=== PATIENT | male | born 1975 | race Caucasian/White ===

== ENCOUNTER 2017-12-11 11:12 | Emergency (ER) | END 2017-12-11 13:35 | disposition home or self-care (01) ==

== ENCOUNTER 2018-03-03 10:06 | Inpatient (IN) | END 2018-03-06 17:15 | disposition home or self-care (01) | DRG 377 ==

== ENCOUNTER 2018-07-08 07:15 | Emergency (ER) | payer MEDICARE, MEDICAID ==
[~2018-07-08] VITALS: Wt 89.6 kg
[~2018-07-08 07:15] MED LIST: ALLO300T2 PO; ALPR0.5T6 PO; ASPI81TA52 PO; ATOR40TA68 PO; CALC667C PO; CARI350T29 PO; CARV6.2579 PO; CHOL10009 PO; DEXL60CA2 PO; FOLI-49 PO; IVAB5TAB PO; LINA290C PO; NEPH PO; NITR0.4T39 SL; SUCR500T PO
[2018-07-08] MEDS ORDERED: BELLADONNA/PHENOBARBITAL TAB PO STA (07:37)
[2018-07-08] MEDS ORDERED: KETOROLAC 15 MG INJ IV STA (07:37)
[2018-07-08] MEDS ORDERED: FAMOTIDINE 20 MG TAB PO STA (07:37)
[2018-07-08] MEDS ORDERED: ONDANSETRON 4 MG INJ IV STA (07:37)
[2018-07-08] MEDS ORDERED: LIDOCAINE/MYLANTA 40 ML BTL PO STA (07:37)
--- NOTE | 2018-07-08 08:15 | ERD ---
ER Documentation Chief Complaint Chief Complaint abd pain, n/v, onset 2 days, DIALYSIS PT HPI 43-year-old man complains of multiple episodes of vomiting beginning this morning and 2 days of periumbilical abdominal pain. He has end-stage kidney disease and was hemodialyzed yesterday. Patient also complains of sore throat after vomiting. He has not eaten anything since last night, denies fevers or chills, no diarrhea, no blood per rectum or melena, no complaints of chest pain or shortness of breath. He was diagnosed with diverticulitis a few months ago and required hospitalization. Patient denies prior abdominal surgery. ROS All systems reviewed and are negative except as per history of present illness. Medications Home Meds Reported Medications Cholecalciferol (Vitamin D3) 1,000 Unit Capsule, 1000 UNIT PO DAILY, CAP 03/03/18 Carisoprodol* (Carisoprodol*) 350 Mg Tablet, 350 MG PO DAILY PRN for MUSCLE SPASMS, TAB 03/03/18 Sucroferric Oxyhydroxide (Velphoro) 500 Mg Tab.chew, 500 MG PO TID, TAB.CHEW 03/03/18 Ivabradine HCl (Corlanor) 5 Mg Tablet, 5 MG PO BID, #60 TAB 03/03/18 Nitroglycerin* (Nitrostat*) 0.4 Mg Tab.subl, 0.4 MG SL Q5MIN PRN for CHEST PAIN, BOTTLE 03/03/18 Multivit/Ca Carb/B Cmplx/Fa* (Anahy-Piotr*) 1 Tab Tab, 1 TAB PO DAILY, TAB 03/03/18 Linaclotide (LINZESS) 290 Mcg Capsule, 290 MCG PO DAILY, #30 CAP 03/03/18 Folic Acid* (Folic Acid*) 1 Mg Tablet, 1 MG PO DAILY, TAB 03/03/18 Dexlansoprazole (Dexilant) 60 Mg Praneeth., 60 MG PO DAILY, #30 CAP 03/03/18 Carvedilol* (Carvedilol*) 6.25 Mg Tablet, 6.25 MG PO BID, #60 TAB 03/03/18 Calcium Acetate* (Calcium Acetate*) 667 Mg Capsule, 1334 MG PO WITH MEALS, #60 CAP 03/03/18 Atorvastatin* (Atorvastatin*) 40 Mg Tablet, 40 MG PO QHS, #30 TAB 03/03/18 Aspirin (Low Dose Aspirin) 81 Mg Tablet.dr, 81 MG PO DAILY, #30 TAB 03/03/18 Alprazolam* (Alprazolam*) 0.5 Mg Tablet, 0.5 MG PO DAILY PRN for ANXIETY, TAB 03/03/18 Allopurinol* (Allopurinol*) 300 Mg Tablet, 300 MG PO BID, TAB 03/03/18 Allergies Allergies: Coded Allergies: iodine (Verified Allergy, Unknown, sob, 07/08/18) PMhx/Soc History of Surgery: Yes (Right Knee cyst removal) Anesthesia Reaction: No Hx Neurological Disorder: No Hx Respiratory Disorders: No Hx Cardiac Disorders: Yes (AICD, AV Fistula) Hx Psychiatric Problems: No Hx Miscellaneous Medical Probl: No Hx Alcohol Use: Yes Hx Substance Use: No Hx Tobacco Use: Yes Smoking Status: Never smoker FmHx Family History: No diabetes Physical Exam Vitals Vital Signs Date Temp Pulse Resp B/P (MAP) Pulse Ox O2 O2 Flow FiO2 Time Delivery Rate 07/08/18 97.6 89 17 135/76 100 07:19 (95) Physical Exam GENERAL: Well-developed, well-nourished, nauseous, afebrile HEENT: Moist mucous membranes, pink conjunctiva, no pharyngeal erythema, no exudates. No submandibular induration. NEURO: Alert and oriented 3, cranial nerves II through XII intact bilaterally, pupils equal round reactive to light, no focal deficits or facial asymmetry, sensation intact distally Strength 5/5 in upper and lower extremities bilaterally CARDIAC: Regular rate and rhythm, no murmurs rubs or gallops LUNGS: Clear bilaterally no wheezing crackles or stridor ABDOMEN: Mild diffuse tenderness throughout, no guarding, no rigidity, no McBurney's point tenderness SKIN: Warm and dry to touch, no abrasions, contusions, or hematomas, no lacerations, no ecchymosis, no target lesions, and without ulcers EXTREMITIES: No clubbing cyanosis or edema, calves are bilaterally symmetrical, no Homans sign, no popliteal cord sign. Distal pulses equal and bilateral PSYCH: Normal affect without agitation or irritability Result Diagram: 07/08/18 0800 07/08/18 0800 Results 24 hrs Laboratory Tests Test 07/08/18 08:00 White Blood Count 7.2 10^3/ul Red Blood Count 3.37 10^6/ul Hemoglobin 11.2 g/dl Hematocrit 33.8 % Mean Corpuscular Volume 100.3 fl Mean Corpuscular Hemoglobin 33.2 pg Mean Corpuscular Hemoglobin Concent 33.1 g/dl Red Cell Distribution Width 11.7 % Platelet Count 200 10^3/UL Mean Platelet Volume 9.7 fl Immature Granulocytes % 0.300 % Neutrophils % 64.1 % Lymphocytes % 20.4 % Monocytes % 5.5 % Eosinophils % 8.9 % Basophils % 0.8 % Nucleated Red Blood Cells % 0.0 /100WBC Immature Granulocytes # 0.020 10^3/ul Neutrophils # 4.6 10^3/ul Lymphocytes # 1.5 10^3/ul Monocytes # 0.4 10^3/ul Eosinophils # 0.6 10^3/ul Basophils # 0.1 10^3/ul Nucleated Red Blood Cells # 0.0 10^3/ul Prothrombin Time 12.1 Sec Prothrombin Time Ratio 0.9 INR International Normalized Ratio 0.89 Activated Partial Thromboplast Time 34.8 Sec Sodium Level 140 mmol/L Potassium Level 5.4 mmol/L Chloride Level 94 mmol/L Carbon Dioxide Level 32 mmol/L Anion Gap 14 Blood Urea Nitrogen 46 mg/dl Creatinine 11.96 mg/dl Est Glomerular Filtrat Rate mL/min 5 mL/min Glucose Level 92 mg/dl Calcium Level 9.5 mg/dl Total Bilirubin 0.2 mg/dl Direct Bilirubin 0.00 mg/dl Indirect Bilirubin 0.2 mg/dl Aspartate Amino Transf (AST/SGOT) 23 IU/L Alanine Aminotransferase (ALT/SGPT) 16 IU/L Alkaline Phosphatase 75 IU/L Total Protein 8.0 g/dl Albumin 4.4 g/dl Globulin 3.60 g/dl Albumin/Globulin Ratio 1.22 Lipase 119 U/L Current Medications Medications Dose Sig/Tyree Start Time Status Last (Trade) Ordered Route PRN Stop Time Admin Dose Reason Admin Ondansetron 4 mg ONCE STAT 07/08/18 DC 07/08/18 HCl (Zofran IV 07:37 08:18 Inj) 07/08/18 07:46 Famotidine 20 mg ONCE STAT 07/08/18 DC 07/08/18 (Pepcid) PO 07:37 08:18 07/08/18 07:46 40 ml ONCE STAT 07/08/18 DC 07/08/18 Miscellaneous PO 07:37 08:19 Medication 07/08/18 07:46 (Gi Cocktail (2)) Belladonna/ 2 tab ONCE STAT 07/08/18 DC 07/08/18 Phenobarbital PO 07:37 08:19 () 07/08/18 07:46 Ketorolac 15 mg ONCE STAT 07/08/18 DC 07/08/18 Tromethamine IV 07:37 08:21 (Toradol) 07/08/18 07:46 Procedures/MDM IV line was established patient was placed on cardiac nurse rhythm strip revealed a sinus rhythm at about 80 bpm with upright P and T waves. Patient was afebrile I administered a GI cocktail, Zofran 4 mg IV, Toradol 15 mg IV CBC and electrolytes were unremarkable, liver function tests were normal, coagulation profile was normal. CT scan of the abdomen and pelvis was performed,IMPRESSION: 1. Colonic diverticulosis without evidence of diverticulitis. 2. Unremarkable appendix. 3. Atrophic kidneys without calcified urinary calculi or obstructive uropathy. Bilateral renal cysts again noted. 4. Tiny umbilical and bilateral inguinal fat-containing hernias without herniated bowel or strangulation. CBC was unremarkable, electrolytes revealed mild hyperkalemia 5.4, liver f unction tests were normal. Patient's vital signs remain normal, he remains afebrile, abdominal pain has improved. His potassium was mildly elevated although he does have end-stage kidney disease and is due for hemodialysis tomorrow and I do not think this level is critical for Mr. Hood EKG performed, read by me revealed a normal sinus rhythm at 60 bpm, normal axis, narrow QRS complex, no concerning ST elevations or depressions noted. No signs of hyperkalemia on EKG. Administered Kayexalate 15 g p.o. for mild hyperkalemia. Differential diagnoses considered, included but not limited to acute coronary syndrome, pulmonary embolism, aortic dissection, abdominal aortic aneurysm, sepsis, stroke, meningitis, encephalitis, pneumonia, appendicitis, cholecystitis, bowel obstruction, pyelonephritis, nephrolithiasis, cystitis, as well as metabolic, hematologic, and electrolyte abnormalities. As well as abscess, cellulitis, fractures, and dislocations. Patient feels much better at this time, and vital signs are normal, symptoms have improved. I did give strict instructions to return to the ED if symptoms continue or worsen, patient will otherwise follow-up with primary care physician. Patient understood instructions and agreed to plan. Disclaimer: Inadvertent spelling and grammatical errors are likely due to EHR/dictation software use and do not reflect on the overall quality of patient care. Also, please note that the electronic time recorded on this note does not necessarily reflect the actual time of the patient encounter. Departure Diagnosis: Primary Impression: Abdominal pain Abdominal location: generalized Qualified Codes: R10.84 - Generalized abdominal pain Additional Impressions: Hyperkalemia Sore throat End stage kidney disease Vomiting Vomiting type: unspecified Vomiting Intractability: non-intractable Nausea presence: with nausea Qualified Codes: R11.2 - Nausea with vomiting, unspecified Condition: Good MY MCPHERSON MD Jul 08, 2018 08:15
[2018-07-08] MEDS ORDERED: NA POLYST SULFON 15 GM/60 ML BTL PO ONE (09:00)
[2018-07-08] MEDS ORDERED: NAPR-985 PO (09:18)
[2018-07-08] MEDS ORDERED: ONDA4TAB8 PO (09:18)
[2018-07-08 10:06] VITALS: BP 111/84; PULSE 84; RESP 20
== END 2018-07-08 10:08 | disposition home or self-care (01) ==
LOC: E/R 07:15
DX: R10.84 Generalized abdominal pain (principal); R40.2142 Coma scale, eyes open, spontaneous, at arrival to emergency department; R40.2362 Coma scale, best motor response, obeys commands, at arrival to emergency department; R40.2252 Coma scale, best verbal response, oriented, at arrival to emergency department; E87.5 Hyperkalemia; J02.9 Acute pharyngitis, unspecified; N18.6 End stage renal disease; Z99.2 Dependence on renal dialysis; Z87.891 Personal history of nicotine dependence; Z79.82 Long term (current) use of aspirin
CPT/HCPCS: 36415; 74176; 80053; 83690; 85025; 85610; 85730; 93005; 96374; 96375; 99285; J1885; J2405

== ENCOUNTER 2018-09-10 07:38 | Emergency (ER) | payer MEDICARE, MEDICAID ==
[~2018-09-10] VITALS: Wt 89.6 kg
[~2018-09-10 07:38] MED LIST changes: +NAPR-985 PO; +ONDA4TAB8 PO
--- NOTE | 2018-09-10 08:45 | ERD ---
ER Documentation Chief Complaint Chief Complaint JUST FINISHED DIALYISIS, FEELS LIGHT HEADED, AND SOB HPI 43-year-old male presents to the emergency department complaining of palpitations. Patient states that he finished his dialysis as per his usual today. 20 minutes after stopping dialysis, he had a sense of his heart rate going fast. He denied any chest pain. Triage note indicates that he has shortness of breath, he is denying this to me. He does state that he felt occasionally lightheaded but did not feel like he was going to pass out. His symptoms then resolved and he feels asymptomatic at this time. He is unclear about exactly how long the symptoms lasted for, but they certainly have been less than approximately 20 minutes as that was the end of his dialysis. ROS All systems reviewed and are negative except as per history of present illness. Medications Home Meds Active Scripts Ondansetron Hcl* (Zofran*) 4 Mg Tablet, 4 MG PO Q8H PRN for NAUSEA AND/OR V OMITING, #30 TAB Prov:MY MCPHERSON MD 07/08/18 Naproxen* (Naprosyn*) 500 Mg Tablet, 500 MG PO BID PRN for PAIN AND/OR INFLAMMATION, #30 TAB Prov:MY MCPHERSON MD 07/08/18 Reported Medications Cholecalciferol (Vitamin D3) 1,000 Unit Capsule, 1000 UNIT PO DAILY, CAP 03/03/18 Carisoprodol* (Carisoprodol*) 350 Mg Tablet, 350 MG PO DAILY PRN for MUSCLE SPASMS, TAB 03/03/18 Sucroferric Oxyhydroxide (Velphoro) 500 Mg Tab.chew, 500 MG PO TID, TAB.CHEW 03/03/18 Ivabradine HCl (Corlanor) 5 Mg Tablet, 5 MG PO BID, #60 TAB 03/03/18 Nitroglycerin* (Nitrostat*) 0.4 Mg Tab.subl, 0.4 MG SL Q5MIN PRN for CHEST PAIN, BOTTLE 03/03/18 Multivit/Ca Carb/B Cmplx/Fa* (Anahy-Piotr*) 1 Tab Tab, 1 TAB PO DAILY, TAB 03/03/18 Linaclotide (LINZESS) 290 Mcg Capsule, 290 MCG PO DAILY, #30 CAP 03/03/18 Folic Acid* (Folic Acid*) 1 Mg Tablet, 1 MG PO DAILY, TAB 03/03/18 Dexlansoprazole (Dexilant) 60 Mg Cap..yaakov, 60 MG PO DAILY, #30 CAP 03/03/18 Carvedilol* (Carvedilol*) 6.25 Mg Tablet, 6.25 MG PO BID, #60 TAB 03/03/18 Calcium Acetate* (Calcium Acetate*) 667 Mg Capsule, 1334 MG PO WITH MEALS, #60 CAP 03/03/18 Atorvastatin* (Atorvastatin*) 40 Mg Tablet, 40 MG PO QHS, #30 TAB 03/03/18 Aspirin (Low Dose Aspirin) 81 Mg Tablet., 81 MG PO DAILY, #30 TAB 03/03/18 Alprazolam* (Alprazolam*) 0.5 Mg Tablet, 0.5 MG PO DAILY PRN for ANXIETY, TAB 03/03/18 Allopurinol* (Allopurinol*) 300 Mg Tablet, 300 MG PO BID, TAB 03/03/18 Allergies Allergies: Coded Allergies: iodine (Verified Allergy, Unknown, sob, 07/08/18) PMhx/Soc History of Surgery: Yes (Right Knee cyst removal) Anesthesia Reaction: No Hx Neurological Disorder: No Hx Respiratory Disorders: No Hx Cardiac Disorders: Yes (AICD, AV Fistula) Hx Psychiatric Problems: No Hx Miscellaneous Medical Probl: No Hx Alcohol Use: Yes Hx Substance Use: No Hx Tobacco Use: Yes Smoking Status: Current some day smoker Physical Exam Vitals Vital Signs Date Temp Pulse Resp B/P (MAP) Pulse Ox O2 O2 Flow FiO2 Time Delivery Rate 09/10/18 89 14 105/74 100 Nasal 08:25 (84) Cannula 09/10/18 Nasal 2 07:55 Cannula 09/10/18 97.8 117 18 107/64 99 07:39 (78) Physical Exam GENERAL: The patient is well developed and appropriate for usual state of health in no apparent distress HEENT: Pupils equal, round, and reactive to light. EOMI. There is no scleral icterus. NECK: C-spine is soft and supple, there is no meningismus. There is no cervical lymphadenopathy. LUNGS: Clear to auscultation bilaterally. There are no rales, wheezes or rhonchi. HEART: Regular rate and rhythm, no murmurs, clicks, rubs or gallops. ABDOMEN: Soft, non-tender, non-distended. There are bowel sounds in all four quadrants. No rebound or guarding. EXTREMITIES: There is no peripheral cyanosis or edema. No focal swelling or erythema. NEURO: The patient moves all four extremities with 5/5 strength. Cranial nerves II - XII are intact. Normal gait. Alert and oriented SKIN: There is no apparent rash or petechiae. HEME/LYMPHATIC: There is no evidence of excessive bruising or lymphedema. PSYCHIATRIC: The patient does not appear anxious or depressed. Result Diagram: 09/10/18 0457 09/10/18 0457 Results 24 hrs Laboratory Tests Test 09/10/18 04:57 White Blood Count 8.7 10^3/ul Red Blood Count 3.79 10^6/ul Hemoglobin 12.0 g/dl Hematocrit 36.3 % Mean Corpuscular Volume 95.8 fl Mean Corpuscular Hemoglobin 31.7 pg Mean Corpuscular Hemoglobin Concent 33.1 g/dl Red Cell Distribution Width 12.4 % Platelet Count 209 10^3/UL Mean Platelet Volume 9.3 fl Immature Granulocytes % 0.500 % Neutrophils % 66.5 % Lymphocytes % 20.8 % Monocytes % 6.8 % Eosinophils % 4.6 % Basophils % 0.8 % Nucleated Red Blood Cells % 0.0 /100WBC Immature Granulocytes # 0.040 10^3/ul Neutrophils # 5.8 10^3/ul Lymphocytes # 1.8 10^3/ul Monocytes # 0.6 10^3/ul Eosinophils # 0.4 10^3/ul Basophils # 0.1 10^3/ul Nucleated Red Blood Cells # 0.0 10^3/ul Sodium Level 140 mmol/L Potassium Level 4.1 mmol/L Chloride Level 93 mmol/L Carbon Dioxide Level 30 mmol/L Anion Gap 17 Blood Urea Nitrogen 33 mg/dl Creatinine 8.20 mg/dl Est Glomerular Filtrat Rate mL/min 7 mL/min Glucose Level 89 mg/dl Calcium Level 9.5 mg/dl Troponin I < 0.012 ng/ml Procedures/MDM Patient was taken to a room, seen and evaluated. Comfort measures were initiated. Diagnostic tests were ordered and reviewed. 3 LEAD RHYTHM STRIP: Normal sinus rhythm without ectopy EK lead EKG reviewed by myself: Normal Sinus Rhythm Normal [place] and intervals No ST elevation, depression, or T wave inversion Impression: Normal EKG RADIOLOGY: Reviewed with the radiologist REEVALUATION: 0840: Diagnostic tests were appreciated. Patient remained without arrhythmia in the emergency department and appeared clinically well. MEDICAL DECISION MAKIN-year-old male presents to the emergency department with palpitations. Patient has an existing history of similar type symptoms. He states that one month ago he had an angiogram which was normal. Patient has no findings on his EKG of cardiac ischemia and has been without arrhythmia in the emergency department. Further diagnostic workup to check on electrolytes, anemia and other concerns of all been normal. Patient appears to be clinically well at this time and appropriate for outpatient supportive care. Departure Diagnosis: Primary Impression: Heart palpitations Condition: Good Patient Instructions: Palpitations SIMBA CHANCE Sep 10, 2018 08:45
[2018-09-10 09:00] VITALS: BP 99/81; PULSE 92; RESP 16
== END 2018-09-10 09:20 | disposition home or self-care (01) ==
LOC: E/R 07:38
DX: R00.2 Palpitations (principal); R40.2142 Coma scale, eyes open, spontaneous, at arrival to emergency department; R40.2252 Coma scale, best verbal response, oriented, at arrival to emergency department; R40.2362 Coma scale, best motor response, obeys commands, at arrival to emergency department; F17.210 Nicotine dependence, cigarettes, uncomplicated; Z79.82 Long term (current) use of aspirin; Z99.2 Dependence on renal dialysis
CPT/HCPCS: 36415; 71045; 80048; 84484; 85025; 93005

== ENCOUNTER 2018-09-14 18:32 | Emergency (ER) | payer MEDICARE, MEDICAID ==
[~2018-09-14] VITALS: Ht 177.8 cm; Wt 94.3 kg
[2018-09-14 18:34] VITALS: Ht 177.8 cm; Wt 94.3 kg
[2018-09-14 19:03] VITALS: BP 117/73; PULSE 85; RESP 20
--- NOTE | 2018-09-14 19:30 | ERD ---
ER Documentation Chief Complaint Chief Complaint dialysis access started to bleed 15 mins ago HPI 43-year-old male with history of CKD on hemodialysis presenting with bleeding from his AV fistula site on his right lower arm. He has had a fistula for about 5 years. Recently about a few weeks ago, he had a clot in the fistula and a stent was placed by vascular surgeon in [place]. His last dialysis was 2 days ago. Today while he was getting up from a chair, he held onto the handles of the chair and pushed himself up. At that moment his fistula started to bleed with pulsatile bleeding. He is not on any blood thinners other than what receiving heparin at dialysis. He denies any other associated symptoms. This is never happened to him before. ROS All systems reviewed and are negative except as per history of present illness. Medications Home Meds Active Scripts Ondansetron Hcl* (Zofran*) 4 Mg Tablet, 4 MG PO Q8H PRN for NAUSEA AND/OR VOMITING, #30 TAB Prov:MY MCPHERSON MD 07/08/18 Naproxen* (Naprosyn*) 500 Mg Tablet, 500 MG PO BID PRN for PAIN AND/OR INFLAMMATION, #30 TAB Prov:MY MCPHERSON MD 07/08/18 Reported Medications Cholecalciferol (Vitamin D3) 1,000 Unit Capsule, 1000 UNIT PO DAILY, CAP 03/03/18 Carisoprodol* (Carisoprodol*) 350 Mg Tablet, 350 MG PO DAILY PRN for MUSCLE SPASMS, TAB 03/03/18 Sucroferric Oxyhydroxide (Velphoro) 500 Mg Tab.chew, 500 MG PO TID, TAB.CHEW 03/03/18 Ivabradine HCl (Corlanor) 5 Mg Tablet, 5 MG PO BID, #60 TAB 03/03/18 Nitroglycerin* (Nitrostat*) 0.4 Mg Tab.subl, 0.4 MG SL Q5MIN PRN for CHEST PAIN, BOTTLE 03/03/18 Multivit/Ca Carb/B Cmplx/Fa* (Anahy-Piotr*) 1 Tab Tab, 1 TAB PO DAILY, TAB 03/03/18 Linaclotide (LINZESS) 290 Mcg Capsule, 290 MCG PO DAILY, #30 CAP 03/03/18 Folic Acid* (Folic Acid*) 1 Mg Tablet, 1 MG PO DAILY, TAB 03/03/18 Dexlansoprazole (Dexilant) 60 Mg Cap., 60 MG PO DAILY, #30 CAP 03/03/18 Carvedilol* (Carvedilol*) 6.25 Mg Tablet, 6.25 MG PO BID, #60 TAB 03/03/18 Calcium Acetate* (Calcium Acetate*) 667 Mg Capsule, 1334 MG PO WITH MEALS, #60 CAP 03/03/18 Atorvastatin* (Atorvastatin*) 40 Mg Tablet, 40 MG PO QHS, #30 TAB 03/03/18 Aspirin (Low Dose Aspirin) 81 Mg Tablet., 81 MG PO DAILY, #30 TAB 03/03/18 Alprazolam* (Alprazolam*) 0.5 Mg Tablet, 0.5 MG PO DAILY PRN for ANXIETY, TAB 03/03/18 Allopurinol* (Allopurinol*) 300 Mg Tablet, 300 MG PO BID, TAB 03/03/18 Allergies Allergies: Coded Allergies: iodine (Verified Allergy, Unknown, sob, 07/08/18) PMhx/Soc History of Surgery: Yes (Right Knee cyst removal) Anesthesia Reaction: No Hx Neurological Disorder: No Hx Respiratory Disorders: No Hx Cardiac Disorders: Yes (AICD, AV Fistula) Hx Psychiatric Problems: No Hx Miscellaneous Medical Probl: Yes (CKD) Hx Alcohol Use: No Hx Substance Use: No Hx Tobacco Use: No Smoking Status: Never smoker FmHx Family History: No diabetes Physical Exam Vitals Vital Signs Date Temp Pulse Resp B/P (MAP) Pulse Ox O2 O2 Flow FiO2 Time Delivery Rate 09/14/18 98.7 85 20 117/73 97 Room Air 19:03 (88) 09/14/18 98.7 91 18 134/77 98 18:34 (96) Physical Exam Const: No acute distress Head: Atraumatic Neck: Full range of motion. No meningismus. Resp: Clear to auscultation bilaterally Cardio: Regular rate and rhythm, no murmurs Abd: Soft, non tender, non distended. Normal bowel sounds Skin: No petechiae or rashes Back: No midline or flank tenderness Ext: No cyanosis, or edema. Right lower arm with AV fistula, with gauze in place, saturated with blood. 2+ radial pulse, strong. No swelling of the upper extremity. No discoloration or cyanosis. No active bleeding once dressing was removed. Area of recent bleeding noted at puncture site Neur: Awake and alert, sensations intact distally. Psych: Normal Mood and Affect Procedures/MDM Patient is presenting with bleeding from his dialysis access site, now resolved. I placed a few layers of skin glue on the area of the bleeding. Pressure dressing was applied. Patient is neurovascularly intact. Follow-up with his vascular surgeon was recommended for tomorrow. Advised not to remove the dressing until he gets dialysis. Departure Diagnosis: Primary Impression: Problem with dialysis access Encounter type: initial encounter Qualified Codes: T82.898A - Other specified complication of vascular prosthetic devices, implants and grafts, initial encounter Condition: Stable Patient Instructions: Dialysis Shunt (Fistula) Bleeding Referrals: MORRIS BURLESON MD (PCP) Additional Instructions: Talk to your vascular surgeon tomorrow about what happened today. I do not remove the dressing until you go to dialysis. If there is recurrent bleeding that you cannot control at home, return to the ER. NOEMI VALLADARES MD Sep 14, 2018 19:30
== END 2018-09-14 19:36 | disposition home or self-care (01) ==
LOC: E/R 18:32
DX: T82.898A Other specified complication of vascular prosthetic devices, implants and grafts, initial encounter (principal); N18.9 Chronic kidney disease, unspecified; Y73.2 Prosthetic and other implants, materials and accessory gastroenterology and urology devices associated with adverse incidents; Z79.82 Long term (current) use of aspirin
CPT/HCPCS: 99282

== ENCOUNTER 2018-12-10 08:33 | Observation (INO) | payer MEDICARE, MEDICAID ==
[~2018-12-10] VITALS: Ht 177.8 cm; Wt 91.7 kg
[2018-12-10] MEDS ORDERED: ASPIRIN 81 MG TAB PO STA (08:47)
[2018-12-10] MEDS: NITROGLYCERIN 2% 1 GM OINT PKT TD STA ×2 (08:54→10:47)
[2018-12-10] MEDS ORDERED: ONDANSETRON 4 MG INJ IV STA (08:55)
[2018-12-10] MEDS ORDERED: morphine 4 MG/ML VIAL IV STA ×2 (08:55→13:27)
[2018-12-10] MEDS ORDERED: NITROGLYCERIN (SL) 0.4 MG TAB SL PRN ×2 (09:00→20:30)
[2018-12-10] MEDS ORDERED: FOLI-49 PO (10:02)
[2018-12-10] MEDS ORDERED: HYDR4TAB51 PO (10:04)
[2018-12-10] MEDS ORDERED: ASPI-817 PO (10:05)
[2018-12-10] MEDS ORDERED: LINA290C PO (10:05)
[2018-12-10] MEDS ORDERED: CARI350T29 PO (10:05)
[2018-12-10] MEDS ORDERED: CARV6.2579 PO (10:06)
[2018-12-10] MEDS ORDERED: ATOR40TA68 PO (10:06)
[2018-12-10] MEDS ORDERED: CHOL100062 PO (10:07)
[2018-12-10] MEDS ORDERED: CALC667C PO (10:08)
[2018-12-10] MEDS ORDERED: DEXL60CA2 PO (10:09)
[2018-12-10] MEDS ORDERED: IVAB5TAB PO (10:09)
[2018-12-10] MEDS ORDERED: SUCR500T PO (10:10)
[2018-12-10] MEDS ORDERED: NEPH PO (10:11)
[2018-12-10] MEDS ORDERED: ACETAMINOPHEN 325 MG TAB PO PRN (10:30)
[2018-12-10] MEDS ORDERED: ONDANSETRON 4 MG INJ IV PRN (10:30)
--- NOTE | 2018-12-10 13:13 | ERD ---
ER Documentation Chief Complaint Chief Complaint SUDDEN UNPROVOKED CHEST PAIN RADIATING TO THE BACK 1 HOUR AFTER DIALYSIS HPI Patient is a 43-year-old male with a history of dialysis and coronary disease who presents with chest pain. He said that it started 1 hour after he got dialysis today. He had full dialysis today. He has left-sided pain which radiates to his back. He was brought in by ambulance and was given aspirin and nitroglycerin by paramedics. Upon review of old medical records this is the patient's ninth visit to the ER since 2006. The patient's primary doctor was Dr. Tate. ROS All systems reviewed and are negative except as per history of present illness. Medications Home Meds Reported Medications Multivit/Ca Carb/B Cmplx/Fa* (Anahy-Piotr*) 1 Tab Tab, 1 TAB PO DAILY, TAB 12/10/18 Sucroferric Oxyhydroxide (Velphoro) 500 Mg Tab.chew, 500 MG PO TID, TAB.CHEW 12/10/18 Dexlansoprazole (Dexilant) 60 Mg Cap..yaakov, 60 MG PO DAILY, #30 CAP 12/10/18 Ivabradine HCl (Corlanor) 5 Mg Tablet, 5 MG PO BID, #60 TAB 12/10/18 Calcium Acetate* (Calcium Acetate*) 667 Mg Capsule, 1334 MG PO WITH MEALS, #60 CAP 12/10/18 Cholecalciferol* (Vitamin D3*) 1,000 Unit Tablet, 1000 UNIT PO DAILY, TAB 12/10/18 Atorvastatin* (Atorvastatin*) 40 Mg Tablet, 40 MG PO QHS, #30 TAB 12/10/18 Carvedilol* (Carvedilol*) 6.25 Mg Tablet, 6.25 MG PO BID, #60 TAB 12/10/18 Aspirin* (Aspirin* EC) 81 Mg Tablet., 81 MG PO DAILY, TAB 12/10/18 Linaclotide (LINZESS) 290 Mcg Capsule, 290 MCG PO DAILY, #30 CAP 12/10/18 Carisoprodol* (Carisoprodol*) 350 Mg Tablet, 350 MG PO DAILY PRN for MUSCLE SPASMS, TAB 12/10/18 Hydromorphone Hcl* (Dilaudid*) 4 Mg Tablet, 4 MG PO Q8H PRN for PAIN, TAB 12/10/18 Folic Acid* (Folic Acid*) 1 Mg Tablet, 1 MG PO DAILY, TAB 12/10/18 Discontinued Reported Medications Cholecalciferol (Vitamin D3) 1,000 Unit Capsule, 1000 UNIT PO DAILY, CAP 03/03/18 Carisoprodol* (Carisoprodol*) 350 Mg Tablet, 350 MG PO DAILY PRN for MUSCLE SPASMS, TAB 03/03/18 Sucroferric Oxyhydroxide (Velphoro) 500 Mg Tab.chew, 500 MG PO TID, TAB.CHEW 03/03/18 Ivabradine HCl (Corlanor) 5 Mg Tablet, 5 MG PO BID, #60 TAB 03/03/18 Nitroglycerin* (Nitrostat*) 0.4 Mg Tab.subl, 0.4 MG SL Q5MIN PRN for CHEST PAIN, BOTTLE 03/03/18 Multivit/Ca Carb/B Cmplx/Fa* (Anahy-Piotr*) 1 Tab Tab, 1 TAB PO DAILY, TAB 03/03/18 Linaclotide (LINZESS) 290 Mcg Capsule, 290 MCG PO DAILY, #30 CAP 03/03/18 Folic Acid* (Folic Acid*) 1 Mg Tablet, 1 MG PO DAILY, TAB 03/03/18 Dexlansoprazole (Dexilant) 60 Mg Cap., 60 MG PO DAILY, #30 CAP 03/03/18 Carvedilol* (Carvedilol*) 6.25 Mg Tablet, 6.25 MG PO BID, #60 TAB 03/03/18 Calcium Acetate* (Calcium Acetate*) 667 Mg Capsule, 1334 MG PO WITH MEALS, #60 CAP 03/03/18 Atorvastatin* (Atorvastatin*) 40 Mg Tablet, 40 MG PO QHS, #30 TAB 03/03/18 Aspirin (Low Dose Aspirin) 81 Mg Tablet., 81 MG PO DAILY, #30 TAB 03/03/18 Alprazolam* (Alprazolam*) 0.5 Mg Tablet, 0.5 MG PO DAILY PRN for ANXIETY, TAB 03/03/18 Allopurinol* (Allopurinol*) 300 Mg Tablet, 300 MG PO BID, TAB 03/03/18 Discontinued Scripts Ondansetron Hcl* (Zofran*) 4 Mg Tablet, 4 MG PO Q8H PRN for NAUSEA AND/OR VOMITING, #30 TAB Prov:MY MCPHERSON MD 07/08/18 Naproxen* (Naprosyn*) 500 Mg Tablet, 500 MG PO BID PRN for PAIN AND/OR INFLAMMATION, #30 TAB Prov:MY MCPHERSON MD 07/08/18 Allergies Allergies: Coded Allergies: Iodinated Contrast- Oral and IV Dye (Unverified Allergy, Unknown, 12/10/18) iodine (Verified Allergy, Unknown, sob, 12/10/18) PMhx/Soc History of Surgery: Yes (Right Knee cyst removal) Anesthesia Reaction: No Hx Neurological Disorder: No Hx Respiratory Disorders: No Hx Cardiac Disorders: Yes (AICD, AV Fistula) Hx Psychiatric Problems: No Hx Miscellaneous Medical Probl: Yes (CKD) Hx Alcohol Use: No Hx Substance Use: No Hx Tobacco Use: No Smoking Status: Never smoker FmHx Family History: No coronary disease Physical Exam Vitals Vital Signs Date Temp Pulse Resp B/P (MAP) Pulse Ox O2 O2 Flow FiO2 Time Delivery Rate 12/10/18 98.2 73 16 102/78 100 Nasal 2.0 10:30 (86) Cannula 12/10/18 Nasal 2 09:29 Cannula 12/10/18 98.2 93 18 110/67 97 08:41 (81) Physical Exam Const: No acute distress Head: Atraumatic Eyes: Normal Conjunctiva ENT: Normal External Ears, Nose and Mouth. Neck: Full range of motion. No meningismus. Resp: Clear to auscultation bilaterally Cardio: Regular rate and rhythm, no murmurs Abd: Soft, non tender, non distended. Normal bowel sounds Skin: No petechiae or rashes Back: No midline or flank tenderness Ext: No cyanosis, or edema Neur: Awake and alert Psych: Normal Mood and Affect Result Diagram: 12/10/18 0900 12/10/18 0900 Results 24 hrs Laboratory Tests Test 12/10/18 09:00 White Blood Count 5.7 10^3/ul Red Blood Count 3.59 10^6/ul Hemoglobin 11.6 g/dl Hematocrit 35.1 % Mean Corpuscular Volume 97.8 fl Mean Corpuscular Hemoglobin 32.3 pg Mean Corpuscular Hemoglobin Concent 33.0 g/dl Red Cell Distribution Width 12.5 % Platelet Count 197 10^3/UL Mean Platelet Volume 9.9 fl Immature Granulocytes % 0.200 % Neutrophils % 62.7 % Lymphocytes % 22.4 % Monocytes % 11.1 % Eosinophils % 2.5 % Basophils % 1.1 % Nucleated Red Blood Cells % 0.0 /100WBC Immature Granulocytes # 0.010 10^3/ul Neutrophils # 3.6 10^3/ul Lymphocytes # 1.3 10^3/ul Monocytes # 0.6 10^3/ul Eosinophils # 0.1 10^3/ul Basophils # 0.1 10^3/ul Nucleated Red Blood Cells # 0.0 10^3/ul Sodium Level 139 mmol/L Potassium Level 5.0 mmol/L Chloride Level 96 mmol/L Carbon Dioxide Level 32 mmol/L Anion Gap 11 Blood Urea Nitrogen 47 mg/dl Creatinine 9.49 mg/dl Est Glomerular Filtrat Rate mL/min 6 mL/min Glucose Level 101 mg/dl Calcium Level 8.5 mg/dl Troponin I < 0.012 ng/ml Current Medications Medications Dose Sig/Tyree Start Time Status Last (Trade) Ordered Route PRN Stop Time Admin Dose Reason Admin Aspirin 162 mg ONCE STAT 12/10/18 DC (Aspirin) PO 08:47 12/10/18 08:57 1 inch ONCE STAT 12/10/18 DC Nitroglycerin TD 08:47 12/10/18 08:49 (Nitroglyceri n 2% Oint) 1 tab Q5M UP TO 3 12/10/18 Nitroglycerin DOSES PRN 09:00 SL .CHEST (Nitroglyceri PAIN n (Sl Tab) 0.4 Mg) Morphine 4 mg ONCE STAT 12/10/18 DC 12/10/18 Sulfate IV 08:55 09:02 (morphine) 12/10/18 08:57 Ondansetron 4 mg ONCE STAT 12/10/18 DC 12/10/18 HCl (Zofran IV 08:55 09:02 Inj) 12/10/18 08:57 Ondansetron 4 mg ER BRIDGE 12/10/18 HCl (Zofran PRN IV 10:30 Inj) NAUSEA/VOMITI 12/11/18 10:29 NG 650 mg ER BRIDGE 12/10/18 Acetaminophen PRN PO 10:30 (Tylenol .MILD PAIN 12/11/18 10:29 Tab) 1-3 OR TEMP Procedures/MDM EKG #1 read by me: Rate/Rhythm: Regular rate and rhythm at a rate of 89 Intervals: Normal Impression: No evidence of ischemia or arrhythmia EKG #2 read by me: Rate/Rhythm: Regular rate and rhythm at a rate of 77 Intervals: Normal Impression: No evidence of ischemia or arrhythmia Chest x-ray read by radiology. Patient is a 43-year-old male who presents with acute chest pain. I am concerned for acute coronary syndrome. EKGs were normal. Troponin was negative. She was x-ray was read by radiology. At this point I doubt pneumoni a, pneumothorax, pulmonary embolism, or aortic dissection. I am concerned for possible acute coronary syndrome. The patient will be admitted to the care of Dr. Maher to a telemetry observation bed. Departure Diagnosis: Primary Impression: Chest pain Chest pain type: unspecified Qualified Codes: R07.9 - Chest pain, unspecified Condition: SETH Monsalve MD Dec 10, 2018 13:13
[2018-12-10] MEDS ORDERED: ZOLPIDEM 5 MG TAB PO PRN (17:00)
[2018-12-10] MEDS ORDERED: CARISOPRODOL 350 MG TAB PO PRN (17:00)
[2018-12-10] MEDS ORDERED: PANTOPRAZOLE 40 MG INJ IV ONE (18:00)
[2018-12-10] MEDS ORDERED: DOCUSATE SODIUM 250 MG CAP PO ONE (18:00)
[2018-12-10 18:11] VITALS: BP 111/62; PULSE 68; RESP 20
[2018-12-10 18:26] VITALS: Ht 177.8 cm; Wt 91.7 kg
[2018-12-10] MEDS: CALCIUM ACETATE 667 MG CAP PO SCH (18:44)
[2018-12-10 19:17] VITALS: BP 114/59; PULSE 72; RESP 18
[2018-12-10] MEDS: HYDROCODONE/APAP (5/325) TAB PO PRN (20:22)
[2018-12-10] MEDS: ONDANSETRON 4 MG INJ IV PRN (20:24)
[2018-12-10] MEDS ORDERED: ATORVASTATIN 40 MG TAB PO SCH (21:00)
[2018-12-10] MEDS: IVABRADINE HCL 5 MG TABLET PO SCH (21:32)
--- NOTE | 2018-12-10 22:40 | CONS ---
DATE OF ADMISSION: 12/10/2018 DATE OF CONSULTATION: 12/10/2018 TYPE OF CONSULTATION: Cardiology. REASON FOR CONSULTATION: Chest pain, assess for acute coronary syndrome. HISTORY OF PRESENT ILLNESS: Mr. Hood is a 43-year-old male with history of coronary artery disease, e nd-stage renal disease on hemodialysis, hypertension, dyslipidemia, likely cardiomyopathy with decrea sed left ventricular ejection fraction and he states he has an ICD, who underwent hemodialysis this m orning and after dialysis back at home had the onset of a left-sided substernal chest pain described as a stabbing to pressure-like sensation occurring at rest. Upon arrival, temperature was 98.2, bloo d pressure 110/67, pulse 73, respiratory rate 18 and sat 97%. The patient's labs revealed a white co unt of 5.7, hemoglobin of 11.6 and platelet count of 197. Sodium 139, potassium 5.0, creatinine 0.49 and BUN 47. Troponin was negative. The patient's electrocardiogram revealed a sinus rhythm, rate o f 71 with normal axis, normal intervals, with borderline inferior Q in III, nonspecific ST-T abnormal ities. The patient was subsequently treated with morphine, aspirin, nitro paste 1 inch and now await s admit to the floor. PAST MEDICAL HISTORY: As above in HPI. MEDICATIONS CURRENTLY IN THE HOSPITAL: 1. Aspirin 81 mg daily. 2. Lipitor 40 mg at bedtime. 3. Carvedilol 6.25 mg p.o. b.i.d. 4. Ivabradine 5 mg p.o. b.i.d. 5. Soma. 6. Colace. 7. Ambien. 8. P.r.n. Tylenol. ALLERGIES: CONTRAST. MEDICATIONS PRIOR TO ADMIT: 1. Lipitor 40 mg at bedtime. 2. Carvedilol 6.25 mg b.i.d. 3. Ivabradine 5 mg b.i.d. 4. Aspirin 81 mg daily. 5. Dilaudid p.r.n. 6. PhosLo 667 mg daily. 7. Dexilant. 8. Vitamin D3. 9. Folic acid. 10. Anahy-Piotr. SOCIAL HISTORY: No current tobacco, social ETOH, no illicit drug use. FAMILY HISTORY: No sudden cardiac or early CAD. REVIEW OF SYSTEMS: As above in HPI. CONSTITUTIONAL: No fevers or chills. PULMONARY: No current shortness of breath. CARDIOVASCULAR: Intermittent chest pain. GASTROINTESTINAL: No vomiting. GENITOURINARY: No hematuria. MUSCULOSKELETAL: Degenerative joint disease. PSYCHIATRIC: The patient denies depression. NEUROLOGIC: No documented history of CVA. ENDOCRINE: No documented history of diabetes mellitus. PHYSICAL EXAMINATION: VITAL SIGNS: Temperature 97.8, blood pressure 129/83, pulse 71, respiratory rate 17, satting 100% on 2 liters. GENERAL: The patient is alert, awake, in no acute distress. NECK: JVP approximately 8 to 9 cm of water. CHEST: Fair air movement throughout. HEART: Regular rate and rhythm. Normal S1, S2, I/ systolic murmur. ABDOMEN: Positive bowel sounds, soft. EXTREMITIES: No edema, 1+ pulses bilateral posterior tibial. LABORATORY STUDIES: As above in the HPI. Since admit, the patient's labs ____ negative, negative t roponins. IMAGING STUDIES: As above in the HPI. No further imaging studies for my review at this time. ECG: As above in the HPI. No further electrograms for my review at this time. IMPRESSION: 1. Chest pain, assess for acute coronary syndrome. 2. History of cardiomyopathy with decreased left ventricular contraction. 3. History of automatic implantable cardioverter-defibrillator placed by Dr. Robin. 4. Hypertension, reasonable control. 5. Dyslipidemia. 6. History of coronary artery disease. 7. End-stage renal disease on hemodialysis. RECOMMENDATIONS: 1. At this time, would admit the patient to telemetry monitoring to follow rhythm and rate closely. 2. Complete the patient's rule out for myocardial infarction to assure the patient's chest pain was not due to an acute coronary syndrome such as an acute myocardial infarction, thus send a final tropo cindy. 3. Continue the patient's aspirin for prophylaxis against cardiovascular events and the patient's Li pitor and adjust it according to a fasting lipid panel to be checked. 4. Would discontinue the patient's carvedilol and ivabradine watching his heart rate and blood press ure closely. I do not think the patient has any need for afterload reduction with MARLEN inhibitor and, therefore, we will check a 2D echo to further assess the patient's ejection fraction, wall motion an d major valve abnormalities and we will consider a possible stress test in this patient if he rules o ut for myocardial infarction. Thank you for allowing me to take part in the care of this patient. I will continue to follow very c losely with you with further recommendations will be made as the patient progresses through his [facility] clinical course. Dictated By: KEVIN LAWSON/NTS Conf#: [id number] DID#: [id number] CC: MORRIS BURLESON MD;*EndCC*
[2018-12-10 23:42] VITALS: BP 105/57; PULSE 79; RESP 18
[2018-12-11] MEDS: ONDANSETRON 4 MG INJ IV PRN ×3 (00:03→09:15)
[2018-12-11] MEDS: HYDROCODONE/APAP (5/325) TAB PO PRN ×3 (00:04→14:14)
[2018-12-11 04:06] VITALS: BP 105/59; PULSE 72; RESP 18
[2018-12-11] MEDS: CALCIUM ACETATE 667 MG CAP PO SCH ×3 (07:55→17:55)
[2018-12-11] MEDS: IVABRADINE HCL 5 MG TABLET PO SCH (08:13)
[2018-12-11] MEDS ORDERED: CHOLECALCIFEROL 1,000 UNIT TAB PO SCH (09:00)
[2018-12-11] MEDS ORDERED: MULTIVIT/CA CARB/B CMPLX/FA TAB PO SCH (09:00)
[2018-12-11] MEDS ORDERED: ASPIRIN (EC) 81 MG TAB PO SCH (09:00)
[2018-12-11] MEDS ORDERED: REGADENOSON 0.4 MG/5 ML SYG ONE (11:23)
--- NOTE | 2018-12-11 11:45 | HP ---
DATE OF ADMISSION: 12/10/2018 HISTORY OF PRESENT ILLNESS:. This is a patient who is known to me from outpatient visits. A 43-year -old male, who came into the Emergency Room with chest pain when he was having dialysis. An hour thr ough the dialysis started having chest pain, so he was sent to the Emergency Room. Patient who has h istory of end-stage renal disease, he has history of coronary artery disease, hypertension, dyslipide maribell, cardiomyopathy with decreased ejection fraction. He also has an ICD. He started having chest d iscomfort an hour through dialysis. That is why he was sent to the Emergency Room. In the Emergency Room, his blood pressure was 110/60, pulse was 72, respiratory rate 18, and he was afebrile. PAST MEDICAL HISTORY: He has a past medical history, as I mentioned above, he has also has, in addit ion to coronary artery disease, hypertension, end-stage renal disease. He has history of chronic renetta k pain, history of diverticulitis and chronic pain disorder. HOME MEDICATIONS: He is on: 1. Aspirin 81 daily. 2. Lipitor 40 daily. 3. Coreg 6.25 twice a day. 4. 5 mg twice a day. 5. Soma 350 3 times a day. 6. Colace 250 daily. 7. Linzess 250 daily. 8. Ambien. 9. Tylenol p.r.n. SOCIAL HISTORY: Does not smoke, social alcohol use, no drug abuse. FAMILY HISTORY: No family history of coronary artery disease and just history of hypertension. REVIEW OF SYSTEMS: The patient is complaining of chest discomfort. He did not have any fever or chi lls. He did not have any cough or sputum production recently. He did not have any shortness of matilde th recently. He denies any abdominal pain, nausea, vomiting. He denies of any hesitancy, urgency or pain during urination. He denies of any one-sided weakness more than the other, or any numbness or tingling. PHYSICAL EXAMINATION: VITAL SIGNS: Temperature is 97.8, blood pressure is 130/60, heart rate is 70, respiratory rate 18, a nd he is afebrile, saturating 100% on 2 liters. HEENT: Atraumatic, normocephalic. Pupils are equal and reactive to light. Extraocular muscles are intact. Nares are clear, no obstruction, no deviation of the septum. Oral cavity, normal oral hygie ne. Ear canals are clear, no signs of inflammation or infection. Tympanic membranes are intact. NECK: Supple. No JVD, no surgical scars, no lymph nodes palpable over the neck. CHEST: AP contour is within normal limits. BREASTS: Breasts and nipples are normal, no nipple retraction. HEART: S1, S2, regular rate and rhythm with cardiomegaly, with a systolic murmur over the apex and h e has the defibrillator on the chest also. LUNGS: Clear to auscultation, no wheezes or crackles and no abnormalities over the lungs. ABDOMEN: Soft, positive bowel sounds, no hepatosplenomegaly, no masses palpable over the abdomen and no rebound tenderness. EXTREMITIES: No edema, clubbing or cyanosis of the extremities. He has trophic changes over the ext remities, otherwise negative. Pulses are palpable. NEUROLOGIC: Cranial nerves II through XII are completely intact. ADMITTING DIAGNOSES: 1. Chest pain, rule out ischemia. He has a history of cardiomyopathy with decreased ejection fracti on and he has a defibrillator. He has a history of hypertension, dyslipidemia, coronary artery disea se, end-stage renal disease, diverticulitis and chronic pain disorder. The patient will be in observ ation status. Will rule out ischemia. Will get cardiac enzymes. Will have cardiology see the patie nt and will have 2D echo to assess his ejection fraction and will follow his labs today. His labs today are chemistry: Sodium is 139, potassium is 5.0, BUN 47, creatinine 9.49. CBC: White blood cells are 5.7, hemoglobin 11.6, hematocrit 35.1, otherwise negative and cardiac enzymes. His troponins are negative, less than 0.012. Chest x-ray: there is no evidence of cardiopulmonary disea se and as I mentioned earlier, the dual-chamber pacemaker, The patient will be under observation. will rule out ischemia and will follow. Dictated By: MORRIS SUNG/MAURA Conf#: [id number] DID#: [id number]
--- NOTE | 2018-12-11 11:53 | PN ---
DATE: 12/11/2018 This is a 43-year-old male who was admitted for chest pain to rule out ischemia. Patient has past me dical history of end-stage renal disease on dialysis, hypertension, coronary artery disease, peripher al vascular disease, chronic pain and diverticulosis. Patient today is going for a Lexiscan to rule out ischemia. VITAL SIGNS: Blood pressure is 105/59, heart rate 74, respiratory rate 18, afebrile. No more chest pain today. He is alert and oriented x3 in no distress. REVIEW OF SYSTEMS: Denies of any chest pain, denies upper abdominal pain. Denies of any hesitancy, urgency. Denies any numbness or tingling. PHYSICAL EXAMINATION: GENERAL: Alert, oriented x3, in no acute distress. HEENT: Atraumatic, normocephalic. CHEST: AP contour is within normal limits. Breasts and nipples are normal, no nipple retraction. HEART: S1, S2, regular rate and rhythm with cardiomegaly. LUNGS: Clear to auscultation, no wheezes or crackles and no abnormalities over the lungs. ABDOMEN: Soft, positive bowel sounds, no hepatosplenomegaly, no masses palpable over the abdomen. N o rebound tenderness. LABORATORY DATA: Today CBC: White blood cells 5.5, hemoglobin 11.6, hematocrit 35.2, and platelet c ount is 191. Chemistry: Sodium is 142, potassium 5.3, BUN 65, creatinine 12.86. Elevated BMP. Car diac enzymes negative since yesterday. ADMITTING DIAGNOSES: Chest pain, rule out ischemia. Patient has Lexiscan today. We will also have dialysis today and if everything within normal limits, possible discharge tomorrow. Dictated By: MORRIS SUNG/MAURA Conf#: [id number] DID#: [id number]
--- NOTE | 2018-12-11 11:59 | CONS ---
Assessment/Plan Assessment/Plan Hospital Course (Demo Recall) IMPRESSION: 1. Chest pain, assess for acute coronary syndrome. 2. History of cardiomyopathy with decreased left ventricular contraction. 3. History of automatic implantable cardioverter-defibrillator placed by Dr. Robin. 4. Hypertension, reasonable control. 5. Dyslipidemia. 6. History of coronary artery disease. 7. End-stage renal disease on hemodialysis. Recc: -Tele -Continue asa -Continue coreg as patient will comply -will start low dose hydralazine afterload reduction in lieu of ACEI at this time given borderline elevated K -HD for volume removal -will f/u echo to reassess EF -lexsican stress test today to assess for ischemia lending to chest pain and reported decreased EF Consultation Date/Type/Reason Admit Date/Time Dec 10, 2018 at 10:05 Initial Consult Date 12/10/18 Type of Consult Cardiology Reason for Consultation chest pain Requesting Provider: MORRIS BURLESON MD Date/Time of Note DATE: 12/11/18 TIME: 11:51 Exam/Review of Systems Vital Signs Vitals Vital Signs Date Temp Pulse Resp B/P (MAP) Pulse Ox O2 O2 Flow FiO2 Time Delivery Rate 12/11/18 Nasal 2.0 07:17 Cannula 12/11/18 97.4 72 18 105/59 95 04:06 (74) Intake and Output 12/10/18 12/10/18 12/11/18 1515:00 23:00 07:00 IntakeIntake Total 360 ml OutputOutput Total 150 ml BalanceBalance 210 ml Exam Exam Review of Systems: CONSTITUTIONAL: No fevers, chills. PULMONARY: No sob CARDIOVASCULAR: No current chest pain GASTROINTESTINAL: No nausea/vomiting. GENITOURINARY: No hematuria/dysuria. MUSCULOSKELETAL: No myagias/arthalgias. PSYCHIATRIC: The patient denies depression. NEUROLOGIC: No weakness Constitutional: alert Psych: no complaints Head: normocephalic ENMT: mucosa pink and moist Neck: supple, jvd (9 cm water) Respiratory: clear to auscultation Cardiovascular: regular rate and rhythm Gastrointestinal: soft, non-tender Musculoskeletal: muscle tone (normal) Extremities: edema (none) Neurological: other (No focal deficits) Labs Result Diagram: 12/11/1851712/11/18517 Results 24hrs Laboratory Tests Test 12/10/18 15:49 12/10/18 21:51 12/11/18 05:18 Creatine Kinase 133 105 Creatine Kinase Index 0.2 0.2 Creatinine Kinase MB (Mass) 0.24 < 0.22 Troponin I < 0.012 0.012 White Blood Count 5.5 Red Blood Count 3.56 L Hemoglobin 11.6 L Hematocrit 35.2 L Mean Corpuscular Volume 98.9 Mean Corpuscular Hemoglobin 32.6 Mean Corpuscular Hemoglobin Concent 33.0 Red Cell Distribution Width 12.2 Platelet Count 191 Mean Platelet Volume 10.1 Immature Granulocytes % 0.200 Neutrophils % 55.5 Lymphocytes % 28.9 Monocytes % 9.4 Eosinophils % 5.1 Basophils % 0.9 Nucleated Red Blood Cells % 0.0 Immature Granulocytes # 0.010 Neutrophils # 3.1 Lymphocytes # 1.6 Monocytes # 0.5 Eosinophils # 0.3 Basophils # 0.1 Nucleated Red Blood Cells # 0.0 Sodium Level 142 Potassium Level 5.3 H Chloride Level 97 Carbon Dioxide Level 25 Anion Gap 20 #H Blood Urea Nitrogen 65 H Creatinine 12.86 #H Est Glomerular Filtrat Rate mL/min 4 L Glucose Level 75 Calcium Level 8.7 B-Type Natriuretic Peptide 7310 H Triglycerides Level 134 Cholesterol Level 144 LDL Cholesterol, Calculated 81 HDL Cholesterol 36 Cholesterol/HDL Ratio 4.0 Medications Medications Current Medications Aspirin (Halfprin) 81 mg DAILY PO Last administered on 12/11/18at 08:14; Admin Dose 81 MG; Start 12/11/18 at 09:00 Atorvastatin Calcium (Lipitor) 40 mg QHS PO Last administered on 12/10/18at 20:21; Admin Dose 40 MG; Start 12/10/18 at 21:00 Calcium Acetate (Phoslo) 1,334 mg WITH MEALS PO Last administered on 12/10/18at 18:44; Admin Dose 1,334 MG; Start 12/10/18 at 17:55 Carisoprodol (Soma) 350 mg DAILY PRN PO MUSCLE SPASMS; Start 12/10/18 at 17:00 Carvedilol (Coreg) 6.25 mg BID PO ; Start 12/10/18 at 21:00 Cholecalciferol (Vitamin D) 1,000 unit DAILY PO Last administered on 12/11/18at 08:13; Admin Dose 1,000 UNIT; Start 12/11/18 at 09:00 Ivabradine (Corlanor) 5 mg BID PO Last administered on 12/10/18at 21:32; Admin D ose 5 MG; Start 12/10/18 at 21:00 Multivit/Ca Carb/ B Cmplx/FA/Prenat (Anahy-Piotr) 1 tab DAILY PO Last administered on 12/11/18at 08:14; Admin Dose 1 TAB; Start 12/11/18 at 09:00 Zolpidem Tartrate (Ambien) 5 mg HS PRN PO INSOMNIA; Start 12/10/18 at 17:00 Acetaminophen/ Hydrocodone Bitart ([place] (5/325)) 1 tab Q4H PRN PO MODERATE PAIN LEVEL 4-6 Last administered on 12/11/18at 04:23; Admin Dose 1 TAB; Start 12/10/18 at 20:30 Ondansetron HCl (Zofran Inj) 4 mg Q4H PRN IV NAUSEA AND/OR VOMITING Last administered on 12/11/18at 04:23; Admin Dose 4 MG; Start 12/10/18 at 20:30 Nitroglycerin (Nitroglycerin (Sl Tab) 0.4 Mg) 1 tab Q5M PRN SL ANGINA; Start 12/10/18 at 20:30 KEVIN DEL CASTILLO Dec 11, 2018 11:59
--- NOTE | 2018-12-11 12:03 | CONS ---
Assessment/Plan Assessment/Plan Assessment/Plan (Daily) 1. acute chest pain 2. ESRD on HD 3. Accelerated HTN 4. H/O HL Plan: pt refused to have HD today, missed HD yesterday, will plan for HD tomorrow pt regular schedule for HD is JES[facility] dougherty today Cardiology following Thanks for consultaiton, I will continue to follow up Consultation Date/Type/Reason Admit Date/Time Dec 10, 2018 at 10:05 Date of Consultation: Dec 11, 2018 Type of Consult NEPHROLOGY Reason for Consultation ESRD on HD Requesting Provider: MORRIS BURLESON MD Date/Time of Note DATE: 12/11/18 TIME: 12:03 Hx of Present Illness 43-year-old male, who came into the Emergency Room with chest pain when he was having dialysis. An hour through the dialysis started having chest pain, so he was sent to the Emergency Room. Patient who has history of end-stage renal disease, he has history of coronary artery disease, hypertension, dyslipidemia, cardiomyopathy with decreased ejection fraction. He also has an ICD. He started having chest discomfort an hour through dialysis. That is why he was sent to the Emergency Room. In the Emergency Room, his blood pressure was 110/60, pulse was 72, respiratory rate 18, and he was afebrile. Renal has been consulted for HD need Cardiovascular: chest pain Past Medical History Medical History: diabetes, high cholesterol, hypertension, other (ESRD on HD ) Home Meds Reported Medications Multivit/Ca Carb/B Cmplx/Fa* (Anahy-Piotr*) 1 Tab Tab, 1 TAB PO DAILY, TAB 12/10/18 Sucroferric Oxyhydroxide (Velphoro) 500 Mg Tab.chew, 500 MG PO TID, TAB.CHEW 12/10/18 Dexlansoprazole (Dexilant) 60 Mg Cap.mp, 60 MG PO DAILY, #30 CAP 12/10/18 Ivabradine HCl (Corlanor) 5 Mg Tablet, 5 MG PO BID, #60 TAB 12/10/18 Calcium Acetate* (Calcium Acetate*) 667 Mg Capsule, 1334 MG PO WITH MEALS, #60 CAP 12/10/18 Cholecalciferol* (Vitamin D3*) 1,000 Unit Tablet, 1000 UNIT PO DAILY, TAB 12/10/18 Atorvastatin* (Atorvastatin*) 40 Mg Tablet, 40 MG PO QHS, #30 TAB 12/10/18 Carvedilol* (Carvedilol*) 6.25 Mg Tablet, 6.25 MG PO BID, #60 TAB 12/10/18 Aspirin* (Aspirin* EC) 81 Mg Tablet., 81 MG PO DAILY, TAB 12/10/18 Linaclotide (LINZESS) 290 Mcg Capsule, 290 MCG PO DAILY, #30 CAP 12/10/18 Carisoprodol* (Carisoprodol*) 350 Mg Tablet, 350 MG PO DAILY PRN for MUSCLE SPASMS, TAB 12/10/18 Folic Acid* (Folic Acid*) 1 Mg Tablet, 1 MG PO DAILY, TAB 12/10/18 Discontinued Reported Medications Hydromorphone Hcl* (Dilaudid*) 4 Mg Tablet, 4 MG PO Q8H PRN for PAIN, TAB 12/10/18 Cholecalciferol (Vitamin D3) 1,000 Unit Capsule, 1000 UNIT PO DAILY, CAP 03/03/18 Carisoprodol* (Carisoprodol*) 350 Mg Tablet, 350 MG PO DAILY PRN for MUSCLE SPASMS, TAB 03/03/18 Sucroferric Oxyhydroxide (Velphoro) 500 Mg Tab.chew, 500 MG PO TID, TAB.CHEW 03/03/18 Ivabradine HCl (Corlanor) 5 Mg Tablet, 5 MG PO BID, #60 TAB 03/03/18 Nitroglycerin* (Nitrostat*) 0.4 Mg Tab.subl, 0.4 MG SL Q5MIN PRN for CHEST PAIN, BOTTLE 03/03/18 Multivit/Ca Carb/B Cmplx/Fa* (Anahy-Piotr*) 1 Tab Tab, 1 TAB PO DAILY, TAB 03/03/18 Linaclotide (LINZESS) 290 Mcg Capsule, 290 MCG PO DAILY, #30 CAP 03/03/18 Folic Acid* (Folic Acid*) 1 Mg Tablet, 1 MG PO DAILY, TAB 03/03/18 Dexlansoprazole (Dexilant) 60 Mg Cap., 60 MG PO DAILY, #30 CAP 03/03/18 Carvedilol* (Carvedilol*) 6.25 Mg Tablet, 6.25 MG PO BID, #60 TAB 03/03/18 Calcium Acetate* (Calcium Acetate*) 667 Mg Capsule, 1334 MG PO WITH MEALS, #60 CAP 03/03/18 Atorvastatin* (Atorvastatin*) 40 Mg Tablet, 40 MG PO QHS, #30 TAB 03/03/18 Aspirin (Low Dose Aspirin) 81 Mg Tablet.dr, 81 MG PO DAILY, #30 TAB 03/03/18 Alprazolam* (Alprazolam*) 0.5 Mg Tablet, 0.5 MG PO DAILY PRN for ANXIETY, TAB 03/03/18 Allopurinol* (Allopurinol*) 300 Mg Tablet, 300 MG PO BID, TAB 03/03/18 Discontinued Scripts Ondansetron Hcl* (Zofran*) 4 Mg Tablet, 4 MG PO Q8H PRN for NAUSEA AND/OR VOMITING, #30 TAB Prov:MY MCPHERSON MD 07/08/18 Naproxen* (Naprosyn*) 500 Mg Tablet, 500 MG PO BID PRN for PAIN AND/OR INFLAMMATION, #30 TAB Prov:MY MCPHERSON MD 07/08/18 Medications Current Medications Aspirin (Halfprin) 81 mg DAILY PO Last administered on 12/11/18at 08:14; Admin Dose 81 MG; Start 12/11/18 at 09:00 Atorvastatin Calcium (Lipitor) 40 mg QHS PO Last administered on 12/10/18at 20:21; Admin Dose 40 MG; Start 12/10/18 at 21:00 Calcium Acetate (Phoslo) 1,334 mg WITH MEALS PO Last administered on 12/10/18at 18:44; Admin Dose 1,334 MG; Start 12/10/18 at 17:55 Carisoprodol (Soma) 350 mg DAILY PRN PO MUSCLE SPASMS; Start 12/10/18 at 17:00 Carvedilol (Coreg) 6.25 mg BID PO ; Start 12/10/18 at 21:00 Cholecalciferol (Vitamin D) 1,000 unit DAILY PO Last administered on 12/11/18at 08:13; Admin Dose 1,000 UNIT; Start 12/11/18 at 09:00 Ivabradine (Corlanor) 5 mg BID PO Last administered on 12/10/18at 21:32; Admin Dose 5 MG; Start 12/10/18 at 21:00 Multivit/Ca Carb/ B Cmplx/FA/Prenat (Anahy-Piotr) 1 tab DAILY PO Last administered on 12/11/18at 08:14; Admin Dose 1 TAB; Start 12/11/18 at 09:00 Zolpidem Tartrate (Ambien) 5 mg HS PRN PO INSOMNIA; Start 12/10/18 at 17:00 Acetaminophen/ Hydrocodone Bitart ([place] (5/325)) 1 tab Q4H PRN PO MODERATE PAIN LEVEL 4-6 Last administered on 12/11/18at 04:23; Admin Dose 1 TAB; Start 12/10/18 at 20:30 Ondansetron HCl (Zofran Inj) 4 mg Q4H PRN IV NAUSEA AND/OR VOMITING Last administered on 12/11/18at 04:23; Admin Dose 4 MG; Start 12/10/18 at 20:30 Nitroglycerin (Nitroglycerin (Sl Tab) 0.4 Mg) 1 tab Q5M PRN SL ANGINA; Start 12/10/18 at 20:30 Allergies: Coded Allergies: Iodinated Contrast- Oral and IV Dye (Unverified Allergy, Unknown, 12/10/18) iodine (Verified Allergy, Unknown, sob, 12/10/18) Social History Smoking Status: Never smoker Exam/Review of Systems Exam Vitals Vital Signs Date Temp Pulse Resp B/P (MAP) Pulse Ox O2 O2 Flow FiO2 Time Delivery Rate 12/11/18 Nasal 2.0 07:17 Cannula 12/11/18 97.4 72 18 105/59 95 04:06 (74) Intake and Output 12/10/18 12/10/18 12/11/18 1515:00 23:00 07:00 IntakeIntake Total 360 ml OutputOutput Total 150 ml BalanceBalance 210 ml Constitutional: alert Psych: no complaints Head: normocephalic Eyes: nl conjunctiva ENMT: nl external ears & nose Neck: supple, non-tender Respiratory: clear to auscultation, normal air movement Cardiovascular: regular rate and rhythm, nl pulses Gastrointestinal: soft, non-tender Musculoskeletal: nl extremities to inspection, nl gait and stance Extremities: normal pulses 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, nl mental status, nl speech, nl strength Skin: nl turgor Lymph: nl lymph nodes Results Result Diagram: 12/11/1851712/11/18517 Results 24hrs Laboratory Tests Test 12/10/18 15:49 12/10/18 21:51 12/11/18 05:18 Creatine Kinase 133 105 Creatine Kinase Index 0.2 0.2 Creatinine Kinase MB (Mass) 0.24 < 0.22 Troponin I < 0.012 0.012 White Blood Count 5.5 Red Blood Count 3.56 L Hemoglobin 11.6 L Hematocrit 35.2 L Mean Corpuscular Volume 98.9 Mean Corpuscular Hemoglobin 32.6 Mean Corpuscular Hemoglobin Concent 33.0 Red Cell Distribution Width 12.2 Platelet Count 191 Mean Platelet Volume 10.1 Immature Granulocytes % 0.200 Neutrophils % 55.5 Lymphocytes % 28.9 Monocytes % 9.4 Eosinophils % 5.1 Basophils % 0.9 Nucleated Red Blood Cells % 0.0 Immature Granulocytes # 0.010 Neutrophils # 3.1 Lymphocytes # 1.6 Monocytes # 0.5 Eosinophils # 0.3 Basophils # 0.1 Nucleated Red Blood Cells # 0.0 Sodium Level 142 Potassium Level 5.3 H Chloride Level 97 Carbon Dioxide Level 25 Anion Gap 20 #H Blood Urea Nitrogen 65 H Creatinine 12.86 #H Est Glomerular Filtrat Rate mL/min 4 L Glucose Level 75 Calcium Level 8.7 B-Type Natriuretic Peptide 7310 H Triglycerides Level 134 Cholesterol Level 144 LDL Cholesterol, Calculated 81 HDL Cholesterol 36 Cholesterol/HDL Ratio 4.0 Medications Medication Current Medications Aspirin (Halfprin) 81 mg DAILY PO Last administered on 12/11/18at 08:14; Admin Dose 81 MG; Start 12/11/18 at 09:00 Atorvastatin Calcium (Lipitor) 40 mg QHS PO Last administered on 12/10/18at 20:21; Admin Dose 40 MG; Start 12/10/18 at 21:00 Calcium Acetate (Phoslo) 1,334 mg WITH MEALS PO Last administered on 12/10/18at 18:44; Admin Dose 1,334 MG; Start 12/10/18 at 17:55 Carisoprodol (Soma) 350 mg DAILY PRN PO MUSCLE SPASMS; Start 12/10/18 at 17:00 Carvedilol (Coreg) 6.25 mg BID PO ; Start 12/10/18 at 21:00 Cholecalciferol (Vitamin D) 1,000 unit DAILY PO Last administered on 12/11/18at 08:13; Admin Dose 1,000 UNIT; Start 12/11/18 at 09:00 Ivabradine (Corlanor) 5 mg BID PO Last administered on 12/10/18at 21:32; Admin Dose 5 MG; Start 12/10/18 at 21:00 Multivit/Ca Carb/ B Cmplx/FA/Prenat (Anahy-Piotr) 1 tab DAILY PO Last administe red on 12/11/18at 08:14; Admin Dose 1 TAB; Start 12/11/18 at 09:00 Zolpidem Tartrate (Ambien) 5 mg HS PRN PO INSOMNIA; Start 12/10/18 at 17:00 Acetaminophen/ Hydrocodone Bitart ([place] (5/325)) 1 tab Q4H PRN PO MODERATE PAIN LEVEL 4-6 Last administered on 12/11/18at 04:23; Admin Dose 1 TAB; Start at 20:30 Ondansetron HCl (Zofran Inj) 4 mg Q4H PRN IV NAUSEA AND/OR VOMITING Last administered on 12/11/18at 04:23; Admin Dose 4 MG; Start 12/10/18 at 20:30 Nitroglycerin (Nitroglycerin (Sl Tab) 0.4 Mg) 1 tab Q5M PRN SL ANGINA; Start 12/10/18 at 20:30 SARIAH WINN MD Dec 11, 2018 12:03
--- NOTE | 2018-12-11 12:29 | CARRPT ---
DATE OF PROCEDURE: 12/11/2018 STRESS TESTING: Chest pain, cardiomyopathy, decreased left ventricular ejection fraction, assess for ischemia. BASELINE VITAL SIGNS AND ELECTROCARDIOGRAM: Pulse 70, blood pressure 122/76. Electrocardiogram with normal sinus rhythm, rate of 70, normal axis, normal intervals, inferior T-wave inversion in lead 3. PROCEDURE: The patient underwent standard Lexiscan infusion protocol over 10 seconds following radio tracer. The patient's test was stopped at completion of protocol. Maximal achieved blood pressure d uring the test 130/64. Maximum achieved heart rate during the test 123. ELECTROCARDIOGRAM FINDINGS: The patient did not develop any new Lexiscan-induced ST or T-wave change s from baseline abnormalities. No documented PVCs. SYMPTOMS: The patient had complaints of nausea and had vomiting during stress test that resolved in recovery. No chest pain. Mild shortness of breath. IMPRESSION: 1. No Lexiscan-induced ST or T-wave changes from baseline abnormalities or diagnostic for ischemia. 2. No complaints of chest pain during stress testing, mild shortness of breath which dissipated duri ng recovery. 3. No documented premature ventricular contractions during stress test. 4. Report of nuclear images to follow in separate dictation. Dictated By: KEVIN LAWSON/MAURA Conf#: [id number] DID#: [id number] CC: MORRIS BURLESON MD;*End*
[2018-12-11] MEDS ORDERED: ALBUMIN HUMAN 25% 100 ML IV PRN (12:30)
[2018-12-11] MEDS ORDERED: HEPARIN 1000 UNITS/ML 10 ML INJ HE SCH (12:30)
[2018-12-11] MEDS ORDERED: SODIUM CHLORIDE 0.9% 1L BAG IV* PRN (12:30)
[2018-12-11] MEDS ORDERED: SODIUM POLYSTYRENE 15 GM KIT (POWDER + SORBITOL) PO ONE (13:30)
[2018-12-11 15:07] VITALS: BP 111/62; PULSE 86; RESP 18
--- NOTE | 2018-12-11 17:06 | RADRPT ---
Vent Rate: 76 bpm RR Interval: 792 msec OH Interval: 186 msec QRS Duration: 102 msec QT Interval: 403 msec QTC Interval: 453 msec P-R-T [place]: 52 - 38 - 37 degrees Sinus rhythm...normal P axis, V-rate 50- 99 Electronically Signed By: Dragan Cartwright
--- NOTE | 2018-12-11 19:16 | RADRPT ---
Echocardiogram Report Patient Name: Grupo JAY ID: [id number] : 1975 (43y 10m)Study Date: 12/11/2018 7:39:06 AM Gender: MAccession #: [id number] Tech: RanjanNeo Mendoza [facility] Location: 522 Ref.Physician: KEVIN MONGE Height(Cm): BSA: Weight(Kg): Quality: AdequateOrder Physician: KEVIN MONGE Account #: Procedures: Echocardiographic Report: Transthoracic echocardiogram with complete 2D, M-Mode, and doppler examination. Indications: Chest Pain. Measurements: 2D/M Mode Doppler Measurement Value Normal Range Measurement Value Normal Range LVIDd 2D 5.2 [ 4.2 - 5.8 ] cm AV Peak Zach 1.4 [ 100.0 - 170.0 ] cm/sec LVIDs 2D 3.1 [ 2.5 - 4.0 ] cm AV Peak PG 8.0 [ 2.0 - 9.0 ] mmHg LVPWd 2D 1.0 [ 0.6 - 1.0 ] cm LVOT Peak Zach 0.8 [ 70.0 - 110.0 ] cm/sec IVSd 2D 0.9 [ 0.6 - 1.0 ] cm LVOT Peak PG 3.0 [ 2.0 - 6.0 ] mmHg AoR Diam 2D 3.1 [ 2.6 - 3.4 ] cm MV E Peak Zach 0.6 [ 60.0 - 130.0 ] cm/sec EDV 2D 131.0 [ 62.0 - 150.0 ] ml MV A Peak Zach 0.8 [ 100.0 - 120.0 ] cm/sec ESV 2D 38.2 [ 21.0 - 61.0 ] ml MV E/A 0.7 [ 0.8 - 1.5 ] ratio EF 2D 70.8 [ 52.0 - 72.0 ] percent MV Decel Time 264 [ 104 - 258 ] msec LA Dimen 2D 3.7 [ 3.0 - 4.0 ] cm Lat E` Zach 0.1 [ 10.0 - 15.0 ] cm/sec Lateral E/E` 7.7 [ 1.0 - 2.0 ] ratio MV E/A 0.7 [ 0.8 - 1.5 ] ratio TR Peak Zach 2.2 [ 100.0 - 280.0 ] cm/sec TR Peak PG 19.0 mmHg RVSP 22.0 [ 10.0 - 36.0 ] mmHg RA Pressure 3.0 mmHg Findings: Left Ventricle: Lower limits of normal systolic function. Normal left ventricular cavity size. Normal left ventricular wall thickness. Ejection fraction is visually estimated at 50-55 %. Tissue Doppler/Mitral Doppler indices are consistent with impaired relaxation (Stage I diastolic dysfunction). Right Ventricle: Normal right ventricular size. Normal right ventricular systolic function. Linear artifact in right ventricle suggestive of catheter, pacer lead, or ICD lead. Left Atrium: The left atrium is normal in size. Right Atrium: The right atrium is normal in size. Mitral Valve: Normal appearance and function of the mitral valve with trace physiologic regurgitation. Aortic Valve: Normal appearance of the aortic valve. No significant aortic stenosis or insufficiency. Tricuspid Valve: Normal appearance of the tricuspid valve. The estimated Peak RVSP is 22 mmHg. There is trace tricuspid regurgitation. Pulmonic Valve: Normal pulmonic valve appearance. Pericardium: Normal pericardium with no significant pericardial effusion. Aorta: Normal aortic root. IVC: Normal size and normal respiratory collapse consistent with normal right atrial pressure. Conclusions: Lower limits of normal systolic function. Normal left ventricular cavity size. Normal left ventricular wall thickness. Ejection fraction is visually estimated at 50-55 %. Tissue Doppler/Mitral Doppler indices are consistent with impaired relaxation (Stage I diastolic dysfunction). Normal appearance and function of the mitral valve with trace physiologic regurgitation. Normal appearance of the tricuspid valve. The estimated Peak RVSP is 22 mmHg. There is trace tricuspid regurgitation. Electronically Signed By: Kevin Monge 2018-12-11 19:15:27 PDT
[2018-12-11 19:18] VITALS: BP 119/67; PULSE 67; RESP 18
--- NOTE | 2018-12-12 08:44 | HP ---
DATE OF ADMISSION: 12/10/2018 HISTORY OF PRESENT ILLNESS: This is a 43-year-old male who has history of end-stage renal disease, c oronary artery disease, hypertension, degenerative joint disease. The patient came into the emergenc y room with chest pain to rule out ischemia. In the emergency room, the patient's initial cardiac en zymes were negative. EKG was negative. The patient was admitted to rule out ischemia. On 9, the patient had cardiac stress test done, Cardiolite stress test done, which was negative. Contin uous cardiac enzymes were also negative. The patient's chest pain resolved mostly possibly a muscle pain. The patient also during the stay in the hospital on 12/11/2018 refused hemodialysis and having no more chest pain. The patient wanted to go home also had discussions with the certified indoor environmentalist, Dr. Shun torres clearing him and his chest pain was ruled out. No ischemic changes. Therefore, on 12/11/2018 , the patient discharged home in stable condition, scheduled for hemodialysis the day after, discusse d that also with the special police officer. Therefore, the patient is discharged home in stable condition wit h diagnosis of ischemia, ruled out, hypertension, coronary artery disease, end-stage renal disease, a nd dyslipidemia. Dictated By: MORRIS BURLESON MD SB/MAURA Conf#: [id number] DID#: [id number] CC: MORRIS BURLESON MD;*EndCC*
== END 2018-12-11 19:51 | disposition home or self-care (01) ==
LOC: E/R 08:33 → TEL 10:05
PROVIDERS: ADMIT Family Medicine; ATTEND Family Medicine
DX: R07.9 Chest pain, unspecified (principal); I25.10 Atherosclerotic heart disease of native coronary artery without angina pectoris; I12.0 Hypertensive chronic kidney disease with stage 5 chronic kidney disease or end stage renal disease; N18.6 End stage renal disease; Z99.2 Dependence on renal dialysis; M19.90 Unspecified osteoarthritis, unspecified site; E78.5 Hyperlipidemia, unspecified; E78.00 Pure hypercholesterolemia, unspecified; Z79.82 Long term (current) use of aspirin; Z95.810 Presence of automatic (implantable) cardiac defibrillator
CPT/HCPCS: 36415; 71045; 78452; 80048; 80061; 82550; 82553; 83880; 84484; 85025; 87081; 93005; 93017; 93306; 96374; 96375; 99285; A9500; A9505; C9113; G0378; J2270; J2405; J2785